=== PATIENT | female | born 2000 | race Caucasian/White ===

== ENCOUNTER 2021-06-30 14:13 | Emergency (ER) | payer OTHER, SELFPAY ==
[2021-06-30 15:25] VITALS: BP 116/70; PULSE 73; RESP 14; TEMP 36.4; O2SAT 99
--- NOTE | 2021-06-30 15:51 | ED.GENADULT ---
HPI - General Adult General Chief complaint: Eye Problems Stated complaint: L side numbness/ Dizzy /blured vision Source: patient and family History of Present Illness HPI narrative: this is a 21-year-old female 7 weeks presents with some headache with some bilateral ear fullness with nasal discharge drainage with some no sore throat no fever chills symptoms for the last couple of days had issues with some left arm and tongue numbness that have subsequently subsided. Currently there is no chest pain no shortness of breath, has remote history of migraines. No neurological deficits. Onset (ago): day(s) Location: face and eyes Severity: mild Related Data Home Medications Medication Instructions Recorded Confirmed cetirizine [All Day Allergy 10 mg PO DAILY 06/30/21 06/30/21 (cetirizine)] vit no.[id number] 1 tablet DAILY 06/30/21 06/30/21 [Classic ] Allergies Allergy/AdvReac Type Severity Reaction Status Date / Time alprazolam [From Xanax] Allergy Rash Verified 06/30/21 15:38 cephalexin Allergy Rash Verified 06/30/21 15:38 hydrocodone [From Lortab] Allergy Itching Verified 06/30/21 15:38 Review of Systems Review of Systems: All systems reviewed & are unremarkable except as noted in HPI and below PMFSH Past Medical History Medical History Patient denies medical problems Exam Const: General: no acute distress Orientation/consciousness: patient oriented x3 HENMT: Head: normal to inspection Other: bilateral frontal sinus tenderness with palpation With tympanic membranes dull Eyes: Conjunctivae: conjunctivae normal Pupils: Equal, round and reactive pupils present Direct Ophthalmoscopy: no photophobia Neck: Neck: normal visual inspection, no lymphadenopathy and no meningeal signs Chest: Chest palpation & inspection: normal inspection of the chest Resp: Effort & Inspection: normal respiratory effort Cardio: Rate: regular rate Rhythm: regular rhythm GI: GI Palp: Yes Soft to palpation : General: Yes no CVA tenderness Urinary Catheter: Urinary Catheter: patent and draining Back/Spine/Pelvis: Back: no CVA tenderness Skin: General skin exam: normal color Rashes: no rashes Neuro: General: patient oriented x3 Extrem: General: normal to inspection and no pedal edema Psych: Mental Status: mental status grossly normal Course Course Emergency Course: after assessment of patient and patient was given Zofran and a g of Tylenol. Critical Care Time Critical Care Time Critical Care Time: No Discharge Plan Discharge Clinical Impression: Sinusitis Qualifiers: Sinusitis location: frontal Chronicity: acute Recurrence: non-recurrent Qualified Code(s): J01.10 - Acute frontal sinusitis, unspecified Patient Disposition: Home, Self-Care Condition: Stable Instructions: Antibiotic Form, Sinusitis (ED), Anxiety (ED) Additional Instructions: take medicine as prescribed and follow-up with primary care physician if symptoms persist or worsen. Prescriptions: New azithromycin [Zithromax Z-Lonnie] 250 mg tablet See Rx Instructions .ROUTE .COMPLEX Qty: 6 RF: 0 No Action All Day Allergy (cetirizine) 10 mg Capsule 10 mg PO DAILY RF: 0 Classic 28 mg iron- 800 mcg Tablet 1 tablet DAILY RF: 0 Follow-up/Referrals: Erasmo,Chelle Waddell MD [Primary Care Provider] - Time of Disposition: 16:00
[2021-06-30] MEDS: ONDANSETRON HCL ODT 4 MG TABLET PO (16:08)
[2021-06-30] MEDS: ACETAMINOPHEN 500 MG TABLET 1000 MG PO (16:08)
[2021-06-30 16:32] VITALS: BP 124/66; PULSE 87; RESP 16; TEMP 36.8; O2SAT 100
== END 2021-06-30 16:35 | disposition home or self-care (01) ==
PROVIDERS: Emergency Provider Emergency Medicine; PCP Family Medicine
DX: J01.10 Acute frontal sinusitis, unspecified (principal)
CPT/HCPCS: 99283; A9270